=== PATIENT | female | born 1950 | race Caucasian/White ===

== ENCOUNTER → 2016-11-19 | Outpatient (CLI) | payer MEDICARE ==
[~2016-11-19] MED LIST: ALBU17I INH; ALBU6.7H INH; ALPR1 PO; DOXY100T PO; FLUO20SO3 PO; LORTA5 PO; POTA-243 PO; PRED20 PO; TRAZ50TA4 PO
--- NOTE | 2016-11-19 14:53 | RADRPT ---
EXAM DATE/TIME: 11/19/2016 14:09 [place] COMPARISON: CHEST PA & LAT, June 24, 2012, 16:18. INDICATIONS : Shortness of breath for the past three days. Possible pneumonia. MEDICAL HISTORY : Asthma. SURGICAL HISTORY : None. ENCOUNTER: Initial ACUITY: 3 days PAIN SCORE: 0/10 LOCATION: Left chest FINDINGS: There is moderate peribronchial thickening present without pneumothorax. There is no alveolar consol idation or pleural effusion. Mild scoliosis is noted. Heart and pulmonary vascularity normal. CONCLUSION: Peribronchial thickening otherwise negative. Doug Hammer MD FACR on November 19, 2016 at 14:48 Board Certified Radiologist. This report was verified electronically.
== END ==
LOC: HRAD 14:01
PROVIDERS: ATTEND Family Medicine
DX: J18.8 Other pneumonia, unspecified organism (principal)
CPT/HCPCS: 71020